=== PATIENT | male | born 1985 | race Caucasian/White ===

== ENCOUNTER 2021-12-13 17:10 | Outpatient (CLI) | payer OTHER, SELFPAY ==
[2021-12-13 18:14] LABS: Viscosity Semen Normal
[2021-12-13 18:15] LABS: Epithelial Count Semen 0-4 /hpf; Pathology Referral Yes; Sperm Immotility 30 % (50-60); Sperm Non-Progressive Motility 20 % (5-10); Sperm Progressive Motility 50 % (31-34); White Blood Count Semen 0-4 /hpf
== END 2021-12-13 17:11 | disposition home or self-care (01) ==
PROVIDERS: PCP Nurse Practitioner; Visit Provider Obstetrics & Gynecology
DX: N46.9 Male infertility, unspecified (principal)
CPT/HCPCS: 80500; 89320

== ENCOUNTER → 2023-08-19 10:32 | Outpatient (BNVA) | payer OTHER, SELFPAY | PROVIDERS: PCP Nurse Practitioner; Visit Provider Emergency Medicine | DX: J02.9 Acute pharyngitis, unspecified (principal) | CPT/HCPCS: 87880 ==